=== PATIENT | female | born 1965 | race Caucasian/White ===

== ENCOUNTER 2016-07-26 00:35 | Emergency (ER) | payer MEDICAID ==
[~2016-07-26] VITALS: Ht 170.2 cm; Wt 68.0 kg
[2016-07-26] MEDS ORDERED: diphenhydrAMINE HCL 25 MG CAPSULE ONE (01:26)
[2016-07-26] MEDS ORDERED: DIPHENHYDRAMINE HCL 12.5 MG/5 ML UDC PO ONE (01:30)
[2016-07-26 05:56] VITALS: BP 111/66
== END 2016-07-26 05:56 | disposition home or self-care (01) ==
LOC: ER 00:37
DX: L29.9 Pruritus, unspecified (principal); F20.9 Schizophrenia, unspecified; Z88.0 Allergy status to penicillin; Z59.0 Homelessness
CPT/HCPCS: 99283; A4606; Q0163 ×2; Z7610

== ENCOUNTER 2016-09-14 12:59 | Emergency (ER) | payer MEDICAID ==
[~2016-09-14] VITALS: Ht 170.2 cm; Wt 61.2 kg
[2016-09-14 12:59] VITALS: BP 134/81
[2016-09-14] MEDS ORDERED: KETOROLAC TROMETHAMINE INJ 60 MG/2 ML VIAL IM ONE ×2 (13:30→13:35)
--- NOTE | 2016-09-14 13:34 | NUR ---
CALLED CHANEL, [employer], TO COME SEE PT
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
--- NOTE | 2016-09-14 14:34 | NUR ---
PT ELOPED FROM FACILITY
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
== END 2016-09-14 14:35 | disposition left against medical advice (07) ==
LOC: ER 13:01
DX: S22.31XA Fracture of one rib, right side, initial encounter for closed fracture (principal); F20.9 Schizophrenia, unspecified; F31.9 Bipolar disorder, unspecified; F17.200 Nicotine dependence, unspecified, uncomplicated; Z88.0 Allergy status to penicillin; Y08.89XA Assault by other specified means, initial encounter; Y93.89 Activity, other specified; Y92.89 Other specified places as the place of occurrence of the external cause; Y99.8 Other external cause status
CPT/HCPCS: 71100; 96372; 99284; A4606; J1885; Z7610